=== PATIENT | female | born 2000 | race Caucasian/White ===

== ENCOUNTER 2018-11-04 16:24 | Observation (INO) | payer BC ==
[~2018-11-04 16:24] MED LIST: Glycopyrrolate 0.2 MG/ML 5 ML SYRINGE ONE; Ketorolac Tromethamine 30 MG/ML VIAL ONE; Lidocaine 1% PF 5 ML VIAL ONE; Ondansetron PF 4 MG/2 ML Vial ONE; PROPOFOL 200 MG/20 ML VIAL ONE; Rocuronium Bromide 10 MG/ML (10ML VIAL) ONE; Succinylcholine Chloride 20 MG/ML 10 ml SYRINGE FS ONE
[2018-11-04 16:55] LABS: #Eosinphils 0.1 thou/uL (0.0-0.7); #Lymphocytes 2.2 thou/uL (1.20-3.40); #Monocytes 0.6 thou/uL (0.11-0.59); #Neutrophils 9.9 thou/uL (1.40-6.50); %Basophils 0.4 % (0.0-1.0); %Eosinophils 0.8 % (0.0-10.0); %Lymphocytes 16.8 % (28.0-48.0); %Monocytes 4.8 % (0.0-4.0); %Neutrophils 77.3 % (31.0-61.0); Hemoglobin 13.3 g/dL (12.0-16.0); Mean Corpuscular HGB CONC 33.6 g/dL (32.0-36.0); Mean Corpuscular Hemoglobin 28.2 pg (25.0-35.0); Mean Corpuscular Volume 83.9 fL (78.0-98.0); Platelet Count 389 thou/uL (130-400); Red Blood Cell (RBC) Count 4.73 mill/uL (4.00-5.20); White Blood Cell (WBC) Count 12.8 thou/uL (4.8-10.8)
[2018-11-04] MEDS ORDERED: Ondansetron PF 4 MG/2 ML Vial ONE (17:22)
[2018-11-04] MEDS ORDERED: Morphine 4 MG/ML VIAL ONE ×2 (17:22→19:03)
--- NOTE | 2018-11-04 17:33 | ULT ---
ULTRASOUND PELVIC TRANSVAGINAL 11/04/18 HISTORY: Pelvic pain. COMPARISON: None. FINDINGS: Real time childers scale, color doppler and spectral analysis of the pelvis performed in transvaginal [place] only. There is no intrauterine . There is a right adnexal mass with peripheral hypervascularity an d what appears to be a crenulated gestational sac. There is some hemorrhage in the cul-de-sac. The ov kelly is separate. The left ovary is normal. The right ovary is normal. Endometrial thickness is normal. The uterus is normal. IMPRESSION: Right adnexal ectopic with blood in the cul-de-sac concerning for a ruptured ectopic pregna ncy. Code COURTNEY Saldaña at 5:15 p.m. POS: [facility]
[2018-11-04] MEDS ORDERED: Fentanyl 100 MCG/2 ML VIAL ONE ×4 (18:13→23:11)
[2018-11-04 19:37] LABS: #Eosinphils 0.1 thou/uL (0.0-0.7); #Lymphocytes 1.9 thou/uL (1.20-3.40); #Monocytes 0.7 thou/uL (0.11-0.59); #Neutrophils 13.9 thou/uL (1.40-6.50); %Basophils 0.2 % (0.0-1.0); %Eosinophils 0.3 % (0.0-10.0); %Lymphocytes 11.2 % (28.0-48.0); %Monocytes 4.4 % (0.0-4.0); %Neutrophils 83.8 % (31.0-61.0); Hemoglobin 12.2 g/dL (12.0-16.0); Mean Corpuscular HGB CONC 33.7 g/dL (32.0-36.0); Mean Corpuscular Hemoglobin 29.3 pg (25.0-35.0); Mean Corpuscular Volume 86.9 fL (78.0-98.0); Mean Platelet Volume 7.3 fL (7.4-10.4); Platelet Count 414 thou/uL (130-400); RBC Distribution Width 12.1 % (11.5-14.5); Red Blood Cell (RBC) Count 4.19 mill/uL (4.00-5.20); White Blood Cell (WBC) Count 16.6 thou/uL (4.8-10.8)
[2018-11-04] MEDS ORDERED: Bupivacaine HCl 0.5%/Epinephrine 1:200,000/PF 30 ml Vial ONE (20:05)
[2018-11-04] MEDS ORDERED: Meperidine HCl/PF 25 MG/ML VIAL ONE (22:32)
[2018-11-04] MEDS ORDERED: Ketorolac Tromethamine 30 MG/ML VIAL IVP PRN (23:47)
[2018-11-04] MEDS ORDERED: traMADol HCl 50 MG TAB PO PRN (23:50)
[2018-11-04] MEDS ORDERED: Acetaminophen 500 MG TAB PO PRN (23:50)
[2018-11-05] MEDS: traMADol HCl 50 MG TAB PO PRN ×2 (01:27→09:04)
[2018-11-05 03:35] VITALS: BMI 38.3
[2018-11-05] MEDS ORDERED: Sodium Chloride 0.9% 10 ML ONE (05:02)
[2018-11-05 06:35] VITALS: BP 98/52
[2018-11-05 08:03] VITALS: TEMP 98.9
[2018-11-05 08:03] LABS: Hemoglobin 9.3 g/dL (12.0-16.0); Mean Corpuscular HGB CONC 33.7 g/dL (32.0-36.0); Mean Corpuscular Hemoglobin 28.7 pg (25.0-35.0); Mean Platelet Volume 7.5 fL (7.4-10.4); Platelet Count 341 thou/uL (130-400); RBC Distribution Width 12.1 % (11.5-14.5); Red Blood Cell (RBC) Count 3.23 mill/uL (4.00-5.20); White Blood Cell (WBC) Count 11.4 thou/uL (4.8-10.8)
--- NOTE | 2018-11-05 09:29 | DIS ---
DATE OF ADMISSION: 11/05/2018 DATE OF DISCHARGE: 11/05/2018 ADMITTING DIAGNOSIS: Ectopic . DISCHARGE DIAGNOSIS: Ectopic . PROCEDURE: Diagnostic laparoscopy with right salpingectomy. CONSULTATIONS: None. HOSPITAL COURSE: The patient is a 18-year-old female, who presented to the emergency room with abdominal pain and was diagnosed with a ruptured ectopic . This diagnosis was confirmed surgically when the patient had a right salpingectomy and evacuation about 1 L of blood. Please see operative note for complete details. The patient was given the hour of the surgery and the lateness of the hour after recovery, the patient was brought in for observation for postoperative care and pain control. The patient has done well overnight. This morning, she reports that she is tolerating p.o., voiding on her own, having good decreased lochia, and good pain control. The patient is being discharged to home. She has instructions to follow up with [facility] [place] in 2 weeks and to seek attention sooner if she experiences fever, increasing pain or bleeding, redness, or drainage from her incision sites. The patient is being discharged with ibuprofen and tramadol 50 mg q.4 hours p.r.n. for pain #20. Job ID: [id number]
--- NOTE | 2018-11-05 10:39 | OP ---
DATE OF PROCEDURE: 11/04/2018 PREOPERATIVE DIAGNOSES: 1. Acute onset of abdominal pain. 2. Right adnexal mass with concerns for ectopic . 3. Evidence of rupture. POSTOPERATIVE DIAGNOSES: 1. Acute onset of abdominal pain. 2. Right adnexal mass with concerns for ectopic . 3. Evidence of rupture. 4. Confirmed right tubal rupture and hemoperitoneum. PROCEDURE PERFORMED: Diagnostic laparoscopy with right salpingectomy. ANESTHESIA: General. COUNTS: Correct. CONDITION: Stable to recovery room. ESTIMATED BLOOD LOSS: 1 L. URINE OUTPUT: 200 mL. SPECIMENS: Right tube and products of conception. The patient transferred to PACU in stable condition at completion of the procedure. INDICATION FOR PROCEDURE: Ms. Mariana Treadwell is a 18-year-old G1, P0 female who presented to the emergency room with several hours of acute onset of abdominal pain and was subsequently diagnosed with right ectopic with concerns of rupture at the [facility] ER. She was transferred to the [facility] where I was consulted. After evaluation, the patient was taken to the operating room, where she was identified itself for a diagnostic laparoscopy and possible salpingectomy versus salpingostomy. Of note, the patient was counseled on the risks and benefits, alternatives of management of suspected ectopic . The patient understood and expressed understanding of the possible need to remove her right tube and possibly ovary. The patient expressed understanding of potential complications of the surgery including infection, bowel or bladder injury, blood transfusion, negative impact in fertility, and possible impact on ovarian function. DESCRIPTION OF PROCEDURE: She was taken to the operating room, where she was placed in dorsal lithotomy position. After being placed under general anesthesia, she was prepared and draped in normal sterile fashion. Attention was first placed vaginally with aid of an operative speculum, the cervix was identified. The anterior lip of the cervix was grasped with a single-tooth tenaculum and a uterine manipulator was then inserted into the cervical os. Attention was then placed abdominally. The patient was noted to have a thick abdominal wall and with some difficulty, the abdomen was then insufflated with CO2 gas. A 5-mm trocar was then introduced into peritoneal cavity through a 5-mm incision at the base of the umbilicus. This was confirmed by laparoscope. The abdomen was then more fully insufflated to 15 mmHg. Upon entry, it was immediately visible that the patient has significant blood collected in the pelvis. A second 11 mm incision was then made suprapubically at the midline and a 5-mm incision was made laterally to the left with an 11 mm and 5-mm port placed under direct visualization. The blood was then as much as possible was then removed with the suction clinical nutrition manager. The tubes and ovaries were then inspected. Right tubal with rupture was identified. The rupture of the tube was lateral and inferior with fairly brisk bleeding. At the patient's request, attempts were made to salvage the tube with removal of products of conception through the rupture and attempt to achieve hemostasis with bipolar cautery. During this process, the size of the rupture was such as it appeared that her distal portion of the tube, blood supply was compromised as this appears dhara in color given the likely is a questionable viable distal portion of the tube and difficulty getting hemostasis, the decision was made then to remove the tube for hemostasis. This was done with bipolar LigaSure device without difficulty with care to avoid the ovarian blood supply. With the EndoCatch bag through the 11 mm port, the tube and products of conception were then removed. The abdomen and pelvis were then irrigated and as much blood as possible was removed through the suction clinical nutrition manager. Good hemostasis was noted and the abdomen was then deflated, and the ports were removed. Inspection of the suprapubic port reveals the fascial incision that was just at about 1 cm in diameter and a fascial stitch was not placed. Skin incisions were closed with 4-0 Monocryl. Attention was then placed back vaginally, where the uterine manipulator and single-tooth tenaculum were then removed. Visual inspection of the cervix revealed good hemostasis. The patient was taken out lithotomy position, extubated, and transferred to recovery bed in stable condition. Job ID: [id number]
[2018-11-07 20:24] LABS: Chlamydia by PCR Not Detected (NotDetected); GC by PCR Not Detected (NotDetected)
== END 2018-11-05 10:10 | disposition home or self-care (01) ==
LOC: ERS 16:24 → SDC/OP 19:25 → 3SE 11-05 00:06
PROVIDERS: ADMIT Obstetrics & Gynecology; ATTEND Obstetrics & Gynecology
PROC: 10T24ZZ Resection of Products of Conception, Ectopic, Percutaneous Endoscopic Approach (ICD-10-PCS; principal; 2018-11-04)
PROC: 0UT54ZZ Resection of Right Fallopian Tube, Percutaneous Endoscopic Approach (ICD-10-PCS; 2018-11-04)
DX: O00.101 Right tubal pregnancy without intrauterine pregnancy (principal); N83.8 Other noninflammatory disorders of ovary, fallopian tube and broad ligament; Z88.1 Allergy status to other antibiotic agents
CPT/HCPCS: 36415; 76856; 84702; 85025; 85027; 86850; 86900; 86901; 87480; 87491; 87510; 87591; 87660; 88305; 96374; 96375; G0378; J0670; J1885; J2001; J2175; J2270; J2405; J2704; J3010